=== PATIENT | female | born 1955 | race Caucasian/White ===

== ENCOUNTER → 2018-04-02 | Outpatient (CLI) | payer OTHER, BC ==
[~2018-04-02] MED LIST: ATEN50TA PO; GLC/500 PO; HYDC25 PO; LEVO112T4 PO; MULT-506 PO; PARO1TAB27 PO
--- NOTE | 2018-04-02 21:07 | DIAGNOSTIC IMAGING REPORT ---
BONE SCAN 3PHASE WHOLE BODY CLINICAL HISTORY: 63 years-old Female presenting with KNEE PAIN,R/O MASS OR TUMOR. TECHNIQUE: Following the IV administration of 27 mCi of technetium 99m MDP, three-phase bone scan of the knees was performed. Anterior flow images as well as anterior and posterior blood pool phase images were acquired. Bone phase imaging of whole body was performed at three hours in multiple obliquities. COMPARISON: No prior radiographs or other examinations for comparison. FINDINGS: On initial flow imaging, symmetric radiotracer distribution in the vasculature. On subsequent blood pool phase imaging, symmetric radiotracer distribution in the vasculature and soft tissues. On bone phase imaging, focal radiotracer uptake at the lateral compartments of the bilateral knees. Additional focal radiotracer uptake suggested in the bilateral mid feet. Minimal scattered regions of increased avidity in the lower thoracic spine. Otherwise expected distribution of radiotracer throughout the osseous structures and genitourinary system. IMPRESSION: 1. Findings consistent with degenerative related uptake in the lateral compartments of the bilateral knees. Correlation with radiographs would be helpful if these have not already been performed. 2. Degenerative related uptake also suspected in the mid feet. 3. Degenerative related uptake in the lower thoracic spine. 4. No focal suspicious radiotracer activity to suggest a mass. Electronically signed by: Marco Antonio Heaton M.D. 04/02/2018 9:05 PM Dictated Date/Time: 04/02/2018 9:03 PM
== END | disposition home or self-care (01) ==
LOC: C.NUCL 16:59
PROVIDERS: ATTEND Orthopaedic Surgery
DX: M25.562 Pain in left knee (principal)